=== PATIENT | female | born 1950 | race Hispanic/Latino ===

== ENCOUNTER 2017-04-13 23:45 | Emergency (ER) | payer SELFPAY ==
[~2017-04-13] VITALS: Ht 157.5 cm; Wt 113.4 kg
[~2017-04-13 23:45] MED LIST: ADVAIR 100-501 EACH INH; AMLODIPINE BESY10 MG PO; ASPIR 8181 MG PO; LEVOTHYROXINE25 MCG PO; LISINOPRIL20 MG PO; MULTIVITAMINS1 EAC7 PO; OMEPRAZOLE40 MG; VYTORIN 10-401 EACH
[2017-04-14] MEDS ORDERED: ALBUTEROL/IPRATROPIUM 3 ML NEB NEB ONE (00:15)
--- NOTE | 2017-04-14 02:09 | Diagnostic Imaging Report ---
CHEST 2 VIEWS, Technique: CHEST 2 VIEWS Comparison: 01/27/2015 Clinical history: Shortness of breath DISCUSSION: Stable appearance of the heart, mediastinum, lungs and pleural spaces. IMPRESSION: No acute abnormality Signed by: Dr Crhisty Carlisle MD on 04/14/2017 2:06 AM
[2017-04-14 03:54] VITALS: BP 171/69
== END 2017-04-14 03:58 | disposition home or self-care (01) ==
LOC: ER 23:45
DX: R06.00 Dyspnea, unspecified (principal); T88.7XXA Unspecified adverse effect of drug or medicament, initial encounter; I10 Essential (primary) hypertension; J45.909 Unspecified asthma, uncomplicated; E03.9 Hypothyroidism, unspecified; E78.5 Hyperlipidemia, unspecified
CPT/HCPCS: 71020; 93005; 94640; 99283

== ENCOUNTER 2017-05-03 02:46 | Emergency (ER) | payer MEDICARE, OTHER ==
[~2017-05-03] VITALS: Ht 157.5 cm; Wt 113.4 kg
--- OUTSIDE RECORDS SUMMARY | 2017-05-03 02:49 | XMS REPORT ---
Author Author [facility] Address Unknown Phone Unavailable Care Team Providers Care Soaker Meat Name Role Phone HIGINIO BEGUM Unavailable Unavailable Problems This patient has no known problems. Allergies, Adverse Reactions, Alerts This patient has no known allergies or adverse reactions. Medications This patient has no known medications. Results Test Description Test Time Test Comments Text Results Atomic Results Result Comments CHEST 2 VIEWS [place] [address] Patient Name: NIXON JACOBSON MR #: [id number] : 1950 Age/Sex: 66/F Req # : [id number] Adm Physician: Ordered by: HIGINIO BEGUM MD Report # : [id number] Location: ER Room/Bed: Procedure: [id number] DX/CHEST 2 VIEWS Exam Date: 04/14/17 Exam Time : 0025 REPORT STATUS: Signed CHEST 2 VIEWS, Technique: CHEST 2 VIEWS Comparison: 01/27/2015 Clinical history: Shortness of breath DISCUSSION: Stable appearance of the heart, mediastinum, lungs and pleural spaces. IMPRESSION: No acute abnormality Signed by: Dr Jaden Carlisle MD on 04/14/2017 2:06 AM Dictated By: JADEN CARLISLE MD 5 Transcribed By: STAN on 04/14/17205 COPY TO: HIGINIO BEGUM MD
[2017-05-03 03:03] LABS: BILIRUBIN,URINE NEGATIVE (NEGATIVE); CLARITY,URINE SL CLOUDY (CLEAR); COLOR,URINE RED (YELLOW); KETONES,URINE NEGATIVE (NEGATIVE); LEUKOCYTE ESTERASE ,URINE 2+ (NEGATIVE); NITRITE,URINE POSITIVE (NEGATIVE); PROTEIN,URINE DIPSTICK 2+ (NEGATIVE); URINE UROBILINOGEN 0.2 mg/dL (0.2 - 1)
[2017-05-03 03:15] LABS: BACTERIA,URINE MANY /HPF; EPITHELIAL CELLS,URINE RARE /LPF; RBC,URINE >50 /HPF (0-5); WBC,URINE (MAN) >50 /HPF (0-5)
[2017-05-03 03:25] LABS: BASOPHILS % 0.4 % (0.0-1.0); EOSINOPHILS # (AUTO) 0.2 (0.0-0.4); EOSINOPHILS % 3.1 % (0.0-6.0); HEMATOCRIT 46.1 % (34.2-44.1); HEMOGLOBIN 14.5 g/dL (12.0-16.0); MEAN CORPUSCULAR HEMOGLOBIN 30.1 pg (28-32); MEAN CORPUSCULAR HGB CONC 31.5 g/dL (31-35); MEAN CORPUSCULAR VOLUME 95.8 fL (81-99); MONOCYTES # (AUTO) 0.6 (0.2-0.8); MONOCYTES % 7.9 % (4.4-11.3); NEUTROPHILS # (AUTO) 4.8 (2.1-6.9); NEUTROPHILS % 62.3 % (38.7-80.0); PLATELET COUNT 332 x10e3/uL (140-360); RED BLOOD COUNT 4.81 x10e6/uL (3.6-5.1); RED CELL DISTRIBUTION WIDTH 14.3 % (11.7-14.4)
[2017-05-03] MEDS ORDERED: SODIUM CHLORIDE 0.9% 1000ML 1,000 ML ONE (03:33)
[2017-05-03 03:37] LABS: INR 1.01; PARTIAL THROMBOPLASTIN TIME 32.6 seconds (23.8-35.5); PROTHROMBIN TIME 12.5 seconds (11.9-14.5)
[2017-05-03 03:39] LABS: ALANINE AMINOTRANSFERASE 17 IU/L (0-55); ALBUMIN 3.8 g/dL (3.5-5.0); ALBUMIN/GLOBULIN RATIO 0.9 (0.8-2.0); ALKALINE PHOSPHATASE 89 IU/L (40-150); ANION GAP 14.8 mmol/L (8-16); BLOOD UREA NITROGEN 18 mg/dL (7-26); BUN/CREATININE RATIO 25 (6-25); CALCIUM 9.3 mg/dL (8.4-10.2); CARBON DIOXIDE 25 mmol/L (22-29); CHLORIDE 101 mmol/L (98-107); CREATININE, SERUM 0.73 mg/dL (0.57-1.11); EST GLOMERULAR FILTRATION RATE > 60 ML/MIN (60-); GLUCOSE 102 mg/dL (74-118); POTASSIUM 3.8 mmol/L (3.5-5.1); SODIUM 137 mmol/L (136-145)
[2017-05-03] MEDS ORDERED: CEFTRIAXONE SOD 1 GM VIAL ONE (03:56)
--- NOTE | 2017-05-03 04:19 | Diagnostic Imaging Report ---
EXAM: CT ABDOMEN/PELVIS WO DATE: 05/03/2017 12:00 AM INDICATION: Pain in the lower abdomen/pelvis COMPARISON: None TECHNIQUE: The abdomen and pelvis were scanned using a multidetector helical scanner. Coronal and sagittal reformations were obtained. Stone protocol performed. IV Contrast: None FINDINGS: Lack of IV contrast decreases sensitivity in evaluating abdominal and pelvic organs. LOWER THORAX: Nonspecific 4 mm left lower lobe nodule. LIVER/BILIARY: No masses. No ductal dilatation. GALLBLADDER: Unremarkable SPLEEN: Unremarkable PANCREAS: Unremarkable ADRENALS: No nodules KIDNEYS: No renal stones or hydronephrosis. GI TRACT: No evidence of bowel obstruction or wall thickening. Predominantly sigmoid diverticulosis. Normal appendix. VESSELS: Mild atherosclerotic calcifications PERITONEUM/RETROPERITONEUM: No free air or fluid LYMPH NODES: No lymphadenopathy REPRODUCTIVE ORGANS/BLADDER: Unremarkable SOFT TISSUES: Rectus muscle diastases with small fat-containing periumbilical hernia. BONES: Multilevel degenerative changes. IMPRESSION: No nephroureterolithiasis or other acute abnormality on noncontrast evaluation. Signed by: Dr Christy Carlisle MD on 05/03/2017 4:15 AM
== END 2017-05-03 07:23 | disposition home or self-care (01) ==
LOC: ER 02:46
DX: N30.01 Acute cystitis with hematuria (principal); I10 Essential (primary) hypertension; E03.9 Hypothyroidism, unspecified; E78.5 Hyperlipidemia, unspecified; Z79.82 Long term (current) use of aspirin
CPT/HCPCS: 36415; 74176; 80053; 81001; 85025; 85610; 85730; 87086; 87186; 99284; J0696; J7030

== ENCOUNTER 2017-10-11 16:08 | Inpatient (IN) | payer MEDICARE, OTHER ==
[~2017-10-11] VITALS: Ht 157.5 cm; Wt 128.9 kg
[2017-10-11 17:02] LABS: BASOPHILS % 0.4 % (0.0-1.0); EOSINOPHILS # (AUTO) 0.2 (0.0-0.4); EOSINOPHILS % 2.6 % (0.0-6.0); HEMATOCRIT 43.6 % (34.2-44.1); HEMOGLOBIN 13.6 g/dL (12.0-16.0); LYMPHOCYTES # (AUTO) 1.9 (1.0-3.2); LYMPHOCYTES % 23.7 % (18.0-39.1); MEAN CORPUSCULAR HEMOGLOBIN 29.6 pg (28-32); MEAN CORPUSCULAR HGB CONC 31.2 g/dL (31-35); MEAN CORPUSCULAR VOLUME 94.8 fL (81-99); MONOCYTES # (AUTO) 0.6 (0.2-0.8); MONOCYTES % 7.4 % (4.4-11.3); NEUTROPHILS # (AUTO) 5.2 (2.1-6.9); NEUTROPHILS % 65.6 % (38.7-80.0); PLATELET COUNT 280 x10e3/uL (140-360); RED CELL DISTRIBUTION WIDTH 14.8 % (11.7-14.4)
[2017-10-11 17:07] LABS: CLARITY,URINE SL CLOUDY (CLEAR); COLOR,URINE YELLOW (YELLOW); LEUKOCYTE ESTERASE ,URINE 1+ (NEGATIVE); NITRITE,URINE NEGATIVE (NEGATIVE); PROTEIN,URINE DIPSTICK NEGATIVE (NEGATIVE)
[2017-10-11 17:08] LABS: BILIRUBIN,URINE NEGATIVE (NEGATIVE); KETONES,URINE NEGATIVE (NEGATIVE); URINE UROBILINOGEN 0.2 mg/dL (0.2 - 1)
[2017-10-11 17:21] LABS: ALANINE AMINOTRANSFERASE 21 IU/L (0-55); ALBUMIN 3.5 g/dL (3.5-5.0); ALBUMIN/GLOBULIN RATIO 0.9 (0.8-2.0); ALKALINE PHOSPHATASE 110 IU/L (40-150); AMYLASE 577 U/L (25-125); ANION GAP 12.3 mmol/L (8-16); BLOOD UREA NITROGEN 18 mg/dL (7-26); BUN/CREATININE RATIO 22 (6-25); CALCIUM 9.2 mg/dL (8.4-10.2); CARBON DIOXIDE 27 mmol/L (22-29); CHLORIDE 104 mmol/L (98-107); CREATININE, SERUM 0.81 mg/dL (0.57-1.11); EST GLOMERULAR FILTRATION RATE > 60 ML/MIN (60-); GLUCOSE 141 mg/dL (74-118); POTASSIUM 4.3 mmol/L (3.5-5.1); SODIUM 139 mmol/L (136-145)
[2017-10-11 17:24] LABS: BACTERIA,URINE FEW /HPF; EPITHELIAL CELLS,URINE MODERATE /LPF; RENAL EPITHELIAL CELLS,URINE FEW
[2017-10-11 17:45] LABS: LIPASE 2272 U/L (8-78)
[2017-10-11] MEDS ORDERED: SODIUM CHLORIDE 0.9% 1000ML 1,000 ML IV ONE ×2 (18:00)
[2017-10-11] MEDS ORDERED: HYDROMORPHONE 1MG/1ML INJ IV STA (19:17)
[2017-10-11] MEDS ORDERED: ONDANSETRON HCL INJ 2 MG/ML VIAL IV ONE (19:30)
--- NOTE | 2017-10-11 19:45 | Diagnostic Imaging Report ---
EXAM: Gallbladder Ultrasound INDICATION: Right upper quadrant pain \S\ruq abdominal pain COMPARISON: None. TECHNIQUE: Transverse and longitudinal images of the gallbladder were obtained. FINDINGS: Liver: Limited with increased echogenicity. The liver measures 18.1 cm in length. The main portal vein is normal in appearance measuring 0.9 cm. The right kidney measures 9.8 cm in length. The right kidney is unremarkable. The visualized portion of the pancreas is unremarkable. The abdominal aorta and inferior vena cava are not well seen. Gallbladder: Stones/Sludge: Apparent gallstones filling the gallbladder with wall echo shadow sign Wall: 0.9 cm Appearance: No pericholecystic fluid or hydrops. Sonographic Schultz's Sign: Negative Bile Ducts: Intrahepatic Ducts: No dilatation Extrahepatic Ducts: Common bile duct measures 0.7 cm, no dilatation Free Fluid: No ascites or pleural effusion IMPRESSION: Gallbladder appears to be filled with gallstones with wall echo shadow sign. No ductal dilatation is seen. Hepatomegaly with increased echogenicity in the liver could be due to fatty infiltration. Signed by: Dr. Phu John M.D. on 10/11/2017 7:41 PM
[2017-10-11] MEDS ORDERED: HYDROMORPHONE 1MG/1ML INJ IV PRN (20:45)
[2017-10-11] MEDS ORDERED: ONDANSETRON HCL INJ 2 MG/ML VIAL IV PRN (20:45)
[2017-10-11] MEDS: SODIUM CHLORIDE 0.9% 1000ML 1,000 ML IV SCH (21:16)
[2017-10-11] MEDS: METRONIDAZOLE 500MG/NS 100ML IV SCH (21:16)
[2017-10-11] MEDS ORDERED: CEFOXITIN 1GM/ DEXTROSE 50ML ML IV SCH (22:00)
[2017-10-11] MEDS: CEFOXITIN SOD 1 GM VIAL IV SCH (22:00)
[2017-10-11] MEDS ORDERED: MONTELUKAST SOD10 MG PO (23:15)
[2017-10-11] MEDS ORDERED: AMLODIPINE BESYL5 MG PO (23:15)
[2017-10-11] MEDS ORDERED: OMEPRAZOLE40 MG PO (23:15)
[2017-10-11] MEDS ORDERED: LISINOPRIL10 MG PO (23:15)
[2017-10-11] MEDS ORDERED: CRESTOR10 MG PO (23:15)
[2017-10-12] VITALS (7 sets, daily range): BP systolic 111–179; BP diastolic 51–82
[2017-10-12] MEDS ORDERED: ASPIRIN81 MG PO (00:49)
[2017-10-12] MEDS: METRONIDAZOLE 500MG/NS 100ML IV SCH ×3 (02:27→13:30)
[2017-10-12] MEDS: SODIUM CHLORIDE 0.9% 1000ML 1,000 ML IV SCH ×4 (04:42→12:42)
[2017-10-12] MEDS: CEFOXITIN SOD 1 GM VIAL IV SCH ×2 (05:25→13:30)
[2017-10-12 05:51] LABS: BASOPHILS % 0.3 % (0.0-1.0); EOSINOPHILS # (AUTO) 0.1 (0.0-0.4); EOSINOPHILS % 0.6 % (0.0-6.0); HEMATOCRIT 41.7 % (34.2-44.1); HEMOGLOBIN 12.9 g/dL (12.0-16.0); MEAN CORPUSCULAR HEMOGLOBIN 29.4 pg (28-32); MEAN CORPUSCULAR HGB CONC 30.9 g/dL (31-35); MONOCYTES # (AUTO) 0.4 (0.2-0.8); MONOCYTES % 4.9 % (4.4-11.3); NEUTROPHILS # (AUTO) 7.2 (2.1-6.9); NEUTROPHILS % 82.9 % (38.7-80.0); PLATELET COUNT 230 x10e3/uL (140-360); RED BLOOD COUNT 4.39 x10e6/uL (3.6-5.1); RED CELL DISTRIBUTION WIDTH 14.9 % (11.7-14.4)
[2017-10-12 06:14] LABS: ALANINE AMINOTRANSFERASE 17 IU/L (0-55); ALBUMIN 3.1 g/dL (3.5-5.0); ALKALINE PHOSPHATASE 101 IU/L (40-150); AMYLASE 134 U/L (25-125); BLOOD UREA NITROGEN 14 mg/dL (7-26); BUN/CREATININE RATIO 16 (6-25); CALCIUM 8.3 mg/dL (8.4-10.2); CARBON DIOXIDE 23 mmol/L (22-29); CHLORIDE 109 mmol/L (98-107); CREATININE, SERUM 0.87 mg/dL (0.57-1.11); EST GLOMERULAR FILTRATION RATE > 60 ML/MIN (60-); GLUCOSE 147 mg/dL (74-118); LIPASE 168 U/L (8-78); SODIUM 141 mmol/L (136-145)
[2017-10-12] MEDS ORDERED: SALMETEROL/FLUTICASONE 250/50 INH SCH (07:00)
[2017-10-12] MEDS ORDERED: DIAZEPAM INJ 5 MG/ML 2 ML IV PRN ×2 (09:00→09:15)
[2017-10-12] MEDS ORDERED: PANTOPRAZOLE 40 MG 10ML VIAL IV SCH (09:00)
[2017-10-12] MEDS ORDERED: LORAZEPAM INJ 2 MG/ML VIAL INJ SCH (09:15)
--- NOTE | 2017-10-12 09:31 | History and Physical ---
CHIEF COMPLAINT: Abdominal pain. HISTORY OF PRESENT ILLNESS: This is a 66-year-old woman who presented to [facility] emergency room with a 3-day history of worsening midepigastric abdominal pain. The patient stated that the pain radiated from the midepigastric area to the right upper quadrant area. The patient states she had nausea, but no vomiting. The patient denied any fever or chills. The patient's pain also radiated from the midepigastric area to her back. In the emergency room, the patient was found to have an amylase and lipase level of 577 and 2272 respectively. The patient's BUN and creatinine was 18 and 0.81 respectively. Total bilirubin was normal at 0.4. The patient's AST and ALT were 18 and 21 respectively. The patient's potassium was 4.3. White blood cell count was 7900 with 65% segmented neutrophils. The patient underwent a gallbladder ultrasound in the emergency room, which revealed hepatomegaly consistent with fatty liver disease, as well as gallstones. No gallbladder wall thickness was appreciated. The patient had a negative Schultz's sign also. REVIEW OF SYSTEMS GENERAL: The patient states over the last few months she has gained 20 pounds. No fever or chills. HEENT: No headache. No vision changes. CARDIOVASCULAR: No chest pain or shortness of breath. GI: Intense midepigastric pain with nausea for the last 3 days. No diarrhea. : No UTI symptoms. NEUROMUSCULAR: No limb weakness. PAST MEDICAL HISTORY 1. Extreme obesity. 2. Hypertensive heart disease. 3. Hyperlipidemia. 4. Hypothyroidism. 5. Asthma. FAMILY HISTORY: Multiple family members have undergone cholecystectomy. The patient has a sister with type 2 diabetes. The patient has a mother and a brother who had coronary artery disease. The patient has numerous family members that have hypertension. SURGICAL HISTORY 1. EGD. 2. Colonoscopy. ALLERGIES: NO KNOWN DRUG ALLERGIES. MEDICATIONS 1. Amlodipine 5 mg daily. 2. Aspirin 81 mg daily. 3. Advair 100 per 50 mg 1 puff b.i.d. 4. Levothyroxine 25 mcg daily. 5. Lisinopril 40 mg daily. 6. Singulair 10 mg daily. 7. Omeprazole 40 mg daily. 8. Rosuvastatin 200 mg daily. SOCIAL HISTORY: The woman is . Lives with her . She is retired. No history of tobacco or alcohol use. PHYSICAL EXAMINATION GENERAL: She is awake, alert, fully oriented, and pleasant on exam. Her adult daughter and are at bedside. VITALS: Blood pressure is 143/67, pulse 106, respiratory rate 18, temperature 98.5, oxygen saturation is 96% on room air. Height is 5 feet 2 inches, weight 280 pounds. BMI is 51. INTEGUMENT: Skin is warm and dry. No pallor or diaphoresis appreciated. HEENT: Anicteric sclerae with moist mucous membranes. NECK: Supple. CARDIOVASCULAR: Tachycardic rate and rhythm LUNGS: No rales. No rhonchi or wheezing. ABDOMEN: Obese. She does have midepigastric tenderness, but no guarding or rebound appreciated. Very difficult to assess for organomegaly or masses because of the patient's body habitus. EXTREMITIES: No edema or deformity. NEUROLOGIC: Intact. IMPRESSION 1. Gallstone pancreatitis. 2. Gallbladder disease, likely acute cholecystitis. 3. Extreme obesity: Body mass index 51. 4. Hypertensive heart disease. 5. Hyperlipidemia. 6. Thyroid disease. PLAN 1. Will follow amylase and lipase levels. 2. Gentle intravenous fluids. 3. Intravenous antibiotics. 4. Consult gastroenterology for possible ERCP. 5. Agree with MRCP to assess for common bile duct obstruction. 6. Will consult general surgery since the patient will most likely need a cholecystectomy in the near future. 7. Informed the patient she must lose weight. 8. Antiemetics. 9. Pain control. I spent 45 minutes in the care of the patient. Job#: [id number] LARA
[2017-10-12] MEDS ORDERED: CLONIDINE HCL 0.1 MG TAB PO ONE (16:30)
[2017-10-12] MEDS ORDERED: CLONIDINE HCL 0.1 MG TAB PO PRN (16:30)
--- NOTE | 2017-10-12 17:50 | Diagnostic Imaging Report ---
PROCEDURE: MRI ABDOMEN/MRCP WITHOUT CONTRAST TECHNIQUE: Axial T1 in and out of phase, axial T2, fat-sat, coronal, T2 with and without fat-sat, axial DWI, and ADC MR images of the abdomen were performed. No intravenous and opinion was given. Heavily T2-weighted MRCP images were also obtained, including thick and thin slab ASSETT, 3-D breath-hold FRFSE, and 3-D reconstructions. COMPARISON: [facility], US, US GALLBLADDER, 10/11/2017, 18:37. [facility], CT, CT ABDOMEN/PELVIS WO, 05/03/2017, 3:40. INDICATIONS: Abdomen pain and nausea. Elevated amylase and lipase per ER notes. Cholelithiasis on prior ultrasound FINDINGS: Exam limited by breathing motion artifact. LACK OF GADOLINIUM DECREASES SENSITIVITY FOR DETECTION OF INTRA-ABDOMINAL PATHOLOGY. LOWER THORAX: Mild bibasilar atelectatic changes. LIVER: Normal hepatic contour. Mild signal dropout of the hepatic parenchyma on out of phase images predominantly involving the right hepatic lobe, consistent with steatosis. No focal T2 hyperintense hepatic lesions. BILIARY: No intra-or extrahepatic biliary ductal dilation. The common bile duct measures approximately 65-6 mm at the pavan hepatis and 4 mm at the pancreatic head. Normal luminal contour, with normal tapering to the ampulla. No intraluminal filling defects, strictures, or extrinsic compressions. Innumerable T2 hypointense gallstones fill the gallbladder lumen. No wall thickening. PANCREAS: Indistinct contour of the pancreatic head, with mild increased surrounding T2 signal, which may represent free fluid/stranding (for example series 6, images 29 and 30). Visualized portions of the pancreatic body and tail are unremarkable. No ductal dilation. SPLEEN: No splenomegaly. ADRENALS: No nodules. KIDNEYS: No hydronephrosis or mass in the imaged portion of the kidneys. PERITONEUM / RETROPERITONEUM: Trace fluid in Morison's pouch/right anterior pararenal space (series 8, image 25 and series 5, image 33). LYMPH NODES: No upper abdominal lymphadenopathy. VESSELS: Normal flow-voids are identified. BONES AND SOFT TISSUES: No abnormal marrow signal.. IMPRESSION: 1. no intra-or extrahepatic biliary ductal dilation or MR evidence of choledocholithiasis. 2. Cholelithiasis, without MR evidence of cholecystitis. 3. Findings in the pancreas likely represent acute pancreatitis, in the setting of elevated lipase. Further characterization is limited by the lack of intravenous contrast. 4. Hepatic steatosis, predominantly involving the right lobe. Earl Joe M.D. Dictated by: Earl Joe M.D. on 10/12/2017 at 17:55 Electronically approved by: Earl Joe M.D. on 10/12/2017 at 17:55
== END 2017-10-12 19:30 | disposition left against medical advice (07) | DRG 439 ==
LOC: ER 16:08 → ERHOLD 20:42 → MED/SURG 23:44
PROVIDERS: ADMIT Internal Medicine; ATTEND Internal Medicine
DX: K85.90 Acute pancreatitis without necrosis or infection, unspecified (principal); Z68.43 Body mass index [BMI] 50.0-59.9, adult; K81.0 Acute cholecystitis; E66.01 Morbid (severe) obesity due to excess calories; I11.9 Hypertensive heart disease without heart failure; E78.5 Hyperlipidemia, unspecified; E03.9 Hypothyroidism, unspecified; J45.909 Unspecified asthma, uncomplicated; K76.0 Fatty (change of) liver, not elsewhere classified
CPT/HCPCS: 36415; 74181; 76705; 80053; 81001; 82150; 83690; 85025; 99284; J0694; J1170; J2060; J2405; J7030

== ENCOUNTER 2024-03-25 18:17 | Emergency (ER) | payer MEDICARE ==
[~2024-03-25] VITALS: Ht 157.5 cm; Wt 122.0 kg
[~2024-03-25 18:17] MED LIST changes: +AMLODIPINE BESYL5 MG PO; +ASPIRIN81 MG PO; +CEFDINIR300 MG PO; +CEFUROXIME250 MG PO; +CRESTOR10 MG PO; +LISINOPRIL10 MG PO; +MONTELUKAST SOD10 MG PO; +NEXLETOL180 MG; +OMEPRAZOLE40 MG PO; +PYRIDIUM200 MG PO; +REPATHA SU140 MG/1 M
[2024-03-25] MEDS ORDERED: IBUPROFEN200 MG PO (18:58)
[2024-03-25] MEDS ORDERED: TYLENOL325 MG PO (18:58)
[2024-03-25] MEDS: CLONIDINE HCL 0.1 MG TAB PO ONE (19:29)
[2024-03-25] MEDS: IBUPROFEN 200 MG TAB PO ONE (19:30)
[2024-03-25] MEDS: ACETAMINOPHEN 325 MG TAB PO ONE (19:30)
[2024-03-25 21:01] VITALS: PULSE 86; RESP 16; TEMP 98.4
[2024-03-25 21:58] VITALS: BP 197/82; PULSE 80; TEMP 98.4; O2SAT 95
== END 2024-03-25 22:02 | disposition home or self-care (01) ==
LOC: FSED 18:27
DX: M25.561 Pain in right knee (principal); M17.11 Unilateral primary osteoarthritis, right knee; M25.461 Effusion, right knee; I16.0 Hypertensive urgency; I10 Essential (primary) hypertension; E03.9 Hypothyroidism, unspecified; E78.5 Hyperlipidemia, unspecified; K21.9 Gastro-esophageal reflux disease without esophagitis; J45.909 Unspecified asthma, uncomplicated; Z87.442 Personal history of urinary calculi
CPT/HCPCS: 99283

== ENCOUNTER 2024-06-05 18:28 | Emergency (ER) | payer MEDICARE ==
[~2024-06-05] VITALS: Ht 157.5 cm; Wt 122.0 kg
[~2024-06-05 18:28] MED LIST changes: +IBUPROFEN200 MG PO; +TYLENOL325 MG PO
[2024-06-05 19:17] VITALS: TEMP 98
[2024-06-05 20:57] LABS: BASOPHILS % 0.6 % (0.0-1.0); EOSINOPHILS # (AUTO) 0.2 (0.0-0.4); EOSINOPHILS % 2.4 % (0.0-6.0); HEMATOCRIT 45.6 % (34.2-44.1); HEMOGLOBIN 14.6 g/dL (12.0-16.0); LYMPHOCYTES # (AUTO) 1.9 (1.0-3.2); LYMPHOCYTES % 30.1 % (18.0-39.1); MEAN CORPUSCULAR HEMOGLOBIN 31.1 pg (28-32); MONOCYTES # (AUTO) 0.5 (0.2-0.8); MONOCYTES % 7.6 % (4.4-11.3); NEUTROPHILS # (AUTO) 3.7 (2.1-6.9); NEUTROPHILS % 59.1 % (38.7-80.0); PLATELET COUNT 175 x10e3/uL (140-360); RED CELL DISTRIBUTION WIDTH 14.9 % (11.7-14.4); WHITE BLOOD COUNT 6.22 x10e3/uL (4.8-10.8)
[2024-06-05 21:13] LABS: ALBUMIN 3.7 g/dL (3.5-5.0); ALBUMIN/GLOBULIN RATIO 1.1 (0.8-2.0); ANION GAP 15.1 mmol/L (8-16); BILIRUBIN,TOTAL 0.3 mg/dL (0.2-1.2); CREATININE, SERUM 0.72 mg/dL (0.57-1.11); POTASSIUM 4.1 mmol/L (3.5-5.1)
[2024-06-05 21:14] LABS: BILIRUBIN,URINE NEGATIVE (NEGATIVE); CLARITY,URINE CLEAR (CLEAR); COLOR,URINE YELLOW (YELLOW); GLUCOSE, URINE NEGATIVE (NEGATIVE); KETONES,URINE NEGATIVE (NEGATIVE); LEUKOCYTE ESTERASE ,URINE SMALL (NEGATIVE); NITRITE,URINE NEGATIVE (NEGATIVE); PH,URINE 6 (5 - 7); PROTEIN,URINE DIPSTICK NEGATIVE (NEGATIVE); URINE UROBILINOGEN 0.2 mg/dL (0.2 - 1)
[2024-06-05 21:23] LABS: BACTERIA,URINE MODERATE /HPF; EPITHELIAL CELLS,URINE FEW /LPF; INFLUENZA A AG NEGATIVE (NEGATIVE); MUCUS,URINE FEW; RBC,URINE 0-5 /HPF (0-5); STREPTOCOCCUS GRP A ANTIGEN NEGATIVE (NEGATIVE)
[2024-06-05 21:24] LABS: CORONAVIRUS COVID-19 AG NEGATIVE (NEGATIVE); INFLUENZA B AG NEGATIVE (NEGATIVE)
[2024-06-05 23:20] VITALS: PULSE 65; RESP 16; O2SAT 99
== END 2024-06-05 23:35 | disposition home or self-care (01) ==
LOC: ER 20:27
DX: R06.00 Dyspnea, unspecified (principal); L85.3 Xerosis cutis; R53.83 Other fatigue; I10 Essential (primary) hypertension; E78.5 Hyperlipidemia, unspecified; E03.9 Hypothyroidism, unspecified; J45.909 Unspecified asthma, uncomplicated; K86.9 Disease of pancreas, unspecified; R94.31 Abnormal electrocardiogram [ECG] [EKG]
CPT/HCPCS: 36415; 71045; 80053; 81001; 83518; 84484; 85025; 87070; 93005; 99283

== ENCOUNTER 2024-09-06 15:19 | Emergency (ER) | payer MEDICARE ==
[~2024-09-06] VITALS: Ht 157.5 cm; Wt 115.2 kg
[2024-09-06] MEDS ORDERED: PYRIDIUM100 MG PO (15:42)
[2024-09-06] MEDS ORDERED: CEFUROXIME250 MG PO (15:42)
[2024-09-06 15:49] VITALS: PULSE 86; RESP 18; TEMP 97.8; O2SAT 97
== END 2024-09-06 15:49 | disposition home or self-care (01) ==
LOC: FSED 15:23
DX: R30.0 Dysuria (principal); N39.0 Urinary tract infection, site not specified; I10 Essential (primary) hypertension; E78.5 Hyperlipidemia, unspecified; E03.9 Hypothyroidism, unspecified; J45.909 Unspecified asthma, uncomplicated
CPT/HCPCS: 81003; 99284